=== PATIENT | female | born 2000 | race Caucasian/White ===

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

== ENCOUNTER → 2019-10-19 | Outpatient (CLI) | payer MEDICAID, SELFPAY ==
[2018-04-17 09:34] VITALS: BMI 30.7
[2019-10-22 05:07] LABS: Chlamydia By Nucleic Acid AMP Negative (Negative)
[2019-10-22 15:50] LABS: Gonococcus By Nucleic Acid AMP Negative (Negative)
== END | disposition home or self-care (01) ==
LOC: LABSPEC 16:26
PROVIDERS: PCP Pediatrics; Visit Provider Obstetrics & Gynecology
DX: Z11.3 Encounter for screening for infections with a predominantly sexual mode of transmission (principal)
CPT/HCPCS: 87491; 87591

== ENCOUNTER → 2019-11-22 | Outpatient (CLI) | payer MEDICAID, SELFPAY ==
[2018-04-17 09:34] VITALS: BMI 30.7
[2019-11-22 12:12] LABS: hCG Titer Quant., Serum < 1 mIU/mL (1-3)
== END | disposition home or self-care (01) ==
LOC: WOBLAB 10:35
PROVIDERS: PCP Pediatrics; Visit Provider Obstetrics & Gynecology
DX: N91.0 Primary amenorrhea (principal)
CPT/HCPCS: 36415; 84702

== ENCOUNTER → 2019-11-26 | Outpatient (CLI) | payer MEDICAID, SELFPAY ==
[2018-04-17 09:34] VITALS: BMI 30.7
[2019-11-26 08:40] LABS: Glucose 75GTT - Fasting 102 mg/dL (70-99)
[2019-11-26 09:14] LABS: Insulin 75GTT - Fasting 29.3 mU/L (2.6-37.6)
[2019-11-26 09:16] LABS: T3 Total - Triiodothyronine 1.39 ng/mL (0.6-1.81)
[2019-11-26 09:54] LABS: Glucose 75GTT - 60 minutes 148 mg/dL (100-160)
[2019-11-26 09:54] LABS: Glucose 75GTT - 30 minutes 163 mg/dL (100-160)
[2019-11-26 10:02] LABS: Insulin 75GTT - 30 MIN 237.9 mU/L (Not Estab.)
[2019-11-26 10:26] LABS: Estradiol 42.7 pg/mL; Follicle Stimulating Hormone 5.9 mIU/mL; Luteinizing Hormone 13.8 mIU/mL; Prolactin 16.9 ng/mL; T4 Free Direct 0.91 ng/dL (0.76-1.46); Thyroid Stim Hormone (TSH) 3.04 uIU/mL (0.358-3.74)
[2019-11-26 10:55] LABS: Insulin 75GTT - 60 min 337.6 mU/L (Not Estab)
[2019-11-26 11:40] LABS: Glucose 75GTT - 120 minutes 91 mg/dL (70-140)
[2019-11-26 11:48] LABS: Insulin 75GTT - 120 min 114.2 mU/L (Not Estab.)
[2019-11-27 10:16] LABS: Sex Hormone-binding Globulin 20.7 nmol/L (24.6-122.0)
[2019-11-30 18:23] LABS: Thyroglobulin Antibody 4.5 IU/mL (0.0-0.9); Thyroid Peroxidase AB < 9 IU/mL (0-26)
== END | disposition home or self-care (01) ==
LOC: LAB 08:00
PROVIDERS: PCP Pediatrics; Referring Provider Obstetrics & Gynecology; Visit Provider Obstetrics & Gynecology
DX: E03.9 Hypothyroidism, unspecified (principal); N92.6 Irregular menstruation, unspecified; Z13.1 Encounter for screening for diabetes mellitus
CPT/HCPCS: 36415; 82533; 82627; 82670; 82951; 82952; 83001; 83002; 83525; 84146; 84270; 84403; 84439; 84443; 84480; 84481; 86376; 86800; 82626

== ENCOUNTER → 2020-01-25 13:59 | Outpatient (CLI) | payer MEDICAID, SELFPAY ==
[2018-04-17 09:34] VITALS: BMI 30.7
[2020-01-25 16:14] LABS: Free T3 3.1 pg/mL (2.18-3.98); T4 Free Direct 1.14 ng/dL (0.76-1.46); Thyroid Stim Hormone (TSH) 0.72 uIU/mL (0.358-3.74)
== END ==
PROVIDERS: PCP Pediatrics; Visit Provider Obstetrics & Gynecology
DX: E03.9 Hypothyroidism, unspecified (principal)
CPT/HCPCS: 36415; 84439; 84443; 84481

== ENCOUNTER 2020-03-10 18:03 | Emergency (ER) | payer MEDICAID, SELFPAY ==
[2018-04-17 09:34] VITALS: BMI 30.7
[2020-03-10 18:04] VITALS: BP 150/112; PULSE 100; RESP 16; TEMP 35.9; O2SAT 100; BMI 31.9
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
--- NOTE | 2020-03-10 18:48 | ED.VIS.GEN ---
History of Present Illness Chief Complaint: Lower Extremity Injury Narrative: 19-year-old female presenting with ankle pain. She states she tripped and twisted her right ankle. She states he is unable to bear weight on it. He has not noted any swelling or bruising. She denies other injury. - Past Medical History (1) Anxious depression Status: Chronic Past Medical History - Allergies and Home Meds Allergies/Adverse Reactions: Allergies No Known Allergies Allergy (Verified 03/10/20 18:06) Primary Care Physician: Caroline Mejia MD [Primary Care Provider] - Prior records reviewed: Yes Past Medical History: None Surgical History: noncontributory Lives: With Family Smoking Status: Never smoker Alcohol: None Drugs: None Review of Systems General: Denies: Chills, Fever, Sweats Eyes: Denies: Visual changes - bilaterally, Diplopia ENT: Denies: Rhinorrhea, Sore throat Cardiovascular: Denies: Chest pain, Palpitations Respiratory: Denies: Dyspnea, Cough, Dyspnea on exertion Gastrointestinal: Denies: Abdominal pain, Nausea, Vomiting, Diarrhea, Melena, Hematochezia Genitourinary: Denies: Dysuria, Hematuria, Frequency Musculoskeletal: Reports: Extremity Pain - Right ankle pain. Denies: Swelling Skin: Denies: Rash, Wounds Neurological: Denies: Headache, Weakness, Numbness Psych: Denies: Depression, Anxiety Physical Exam Vital Signs/Narrative: Vital Signs Temp Pulse Resp BP Pulse Ox 03/10/20 18:04 96.7 F L 100 16 150/112 H 100 General: Well nourished, Well developed, No Acute Distress Head: Normocephalic, Atraumatic Eyes: Perrl, EOMI ENT: Moist mucous membranes, No rhinorrhea Neck: Supple, Nontender Cardiovascular: Regular rate, Regular rhythm, No murmurs Respiratory: No distress, CTA bilaterally, Chest nontender Extremities: Tenderness - Tenderness to palpation over right lateral malleolus. There is no obvious swelling or deformity. Her right foot is neurovascularly intact with brisk cap refill to all 5. Negative for: Calf Tenderness Skin: Normal color, No rash Neurological: Alert, Oriented x3 Psychological: Normal affect, Normal Mood Diagnostic/Tx/Re-eval Clinical Impression(s) from Imaging Studies Ankle X-Ray 03/10/20 18:08 IMPRESSION: Lateral soft tissue injury without underlying fracture or dislocation. Electronically Signed: Katerin Cat MD at 18:24 EST , Service support , - Medical Decision Making 19-year-old female presenting with right ankle pain. She states he is unable to bear weight and has pain over the lateral malleolus. There is no obvious deformity. Patient had x-ray of the right ankle 3 views which is interpreted by myself as no acute bony abnormality and radiology does agree. Patient was placed in Ralph wrap and Aircast. She is provided crutches for home. She was given [place] in the ED however she was counseled she will need to alternate Tylenol ibuprofen at home. She is amenable this plan. She is discharged home in stable condition. Impression: 1. Right ankle sprain ED Disposition - Plan for ED Patient: Disposition: Home or Assisted Living Instructions: ED Sprain Ankle W X Ray Referrals: Caroline Mejia MD [Primary Care Provider] -
[2020-03-10] MEDS: HYDROcodone Bitartrate/Apap 5/325 Tablet PO (19:01)
== END 2020-03-10 19:26 | disposition home or self-care (01) ==
PROVIDERS: Emergency Provider Student in an Organized Health Care Education/Training Program; PCP Pediatrics
DX: S93.401A Sprain of unspecified ligament of right ankle, initial encounter (principal); X50.1XXA Overexertion from prolonged static or awkward postures, initial encounter; Y93.89 Activity, other specified; Y92.89 Other specified places as the place of occurrence of the external cause; Y99.8 Other external cause status
CPT/HCPCS: 73610; 99284

== ENCOUNTER → 2020-04-12 14:30 | Outpatient (CLI) | payer MEDICAID, SELFPAY ==
[2020-04-12 15:50] LABS: Progesterone Level 0.68 ng/mL (See Comment)
== END ==
PROVIDERS: PCP Pediatrics; Visit Provider Obstetrics & Gynecology
DX: N92.6 Irregular menstruation, unspecified (principal); N97.0 Female infertility associated with anovulation
CPT/HCPCS: 36415; 84144

== ENCOUNTER → 2020-06-30 12:38 | Outpatient (CLI) | payer MEDICAID, SELFPAY | PROVIDERS: PCP Family Medicine; Referring Provider Obstetrics & Gynecology; Visit Provider Obstetrics & Gynecology | DX: N92.6 Irregular menstruation, unspecified (principal); N97.0 Female infertility associated with anovulation | CPT/HCPCS: 36415; 84144 ==

== ENCOUNTER → 2020-08-01 14:21 | Outpatient (CLI) | payer MEDICAID, SELFPAY ==
[2020-08-01 16:00] LABS: Progesterone Level 11.23 ng/mL (See Comment)
== END ==
PROVIDERS: PCP Family Medicine; Visit Provider Obstetrics & Gynecology
DX: N97.0 Female infertility associated with anovulation (principal)
CPT/HCPCS: 36415; 84144

== ENCOUNTER → 2020-09-04 11:13 | Outpatient (CLI) | payer MEDICAID, SELFPAY ==
[2020-08-28 10:24] VITALS: BMI 31.9
[2020-09-04 12:06] LABS: Progesterone Level 9.59 ng/mL (See Comment)
== END ==
PROVIDERS: PCP Family Medicine; Visit Provider Obstetrics & Gynecology
DX: N97.0 Female infertility associated with anovulation (principal)
CPT/HCPCS: 36415; 84144

== ENCOUNTER → 2020-11-23 14:26 | Outpatient (CLI) | payer MEDICAID, SELFPAY ==
[2020-11-23 16:18] LABS: Progesterone Level 15.68 ng/mL (See Comment)
[2020-11-24 11:58] LABS: Free T3 2.7 pg/mL (2.18-3.98); T4 Free Direct 0.87 ng/dL (0.76-1.46); Thyroid Stim Hormone (TSH) 2.68 uIU/mL (0.358-3.74)
== END ==
PROVIDERS: PCP Family Medicine; Visit Provider Obstetrics & Gynecology
DX: E03.9 Hypothyroidism, unspecified (principal); Z51.81 Encounter for therapeutic drug level monitoring
CPT/HCPCS: 36415; 84144; 84439; 84443; 84481

== ENCOUNTER → 2020-11-24 | Outpatient (CLI) | payer MEDICAID, SELFPAY ==
[2020-11-27 22:07] LABS: Chlamydia By Nucleic Acid AMP Negative (Negative)
[2020-11-27 22:27] LABS: Gonococcus By Nucleic Acid AMP Negative (Negative)
== END | disposition home or self-care (01) ==
LOC: LABSPEC 10:49
PROVIDERS: PCP Family Medicine; Visit Provider Obstetrics & Gynecology
DX: Z11.3 Encounter for screening for infections with a predominantly sexual mode of transmission (principal)
CPT/HCPCS: 87491; 87591

== ENCOUNTER → 2021-01-10 14:53 | Outpatient (CLI) | payer MEDICAID, SELFPAY ==
[2021-01-10 15:35] LABS: Progesterone Level 0.47 ng/mL (See Comment)
== END ==
PROVIDERS: PCP Family Medicine; Visit Provider Obstetrics & Gynecology
DX: N97.0 Female infertility associated with anovulation (principal)
CPT/HCPCS: 36415; 84144

== ENCOUNTER → 2021-01-25 | Outpatient (CLI) | payer MEDICAID, SELFPAY | END | disposition home or self-care (01) | LOC: LABSPEC 15:04 | PROVIDERS: PCP Family Medicine; Referring Provider Physician Assistant; Visit Provider Physician Assistant | DX: J02.9 Acute pharyngitis, unspecified (principal) | CPT/HCPCS: 87081 ==

== ENCOUNTER → 2021-02-08 14:04 | Outpatient (CLI) | payer MEDICAID, SELFPAY ==
[2021-02-08 15:56] LABS: Progesterone Level 10.91 ng/mL (See Comment)
== END ==
PROVIDERS: PCP Family Medicine; Visit Provider Obstetrics & Gynecology
DX: Z31.83 Encounter for assisted reproductive fertility procedure cycle (principal)
CPT/HCPCS: 36415; 84144

== ENCOUNTER → 2021-12-25 | Outpatient (CLI) | payer MEDICAID, SELFPAY | END | disposition home or self-care (01) | PROVIDERS: PCP Family Medicine; Referring Provider Physician Assistant Surgical; Visit Provider Physician Assistant Surgical | DX: J02.9 Acute pharyngitis, unspecified (principal) | CPT/HCPCS: 87070 ==

== ENCOUNTER → 2022-01-02 | Outpatient (CLI) | payer MEDICAID, SELFPAY | END | disposition home or self-care (01) | LOC: LABSPEC 15:26 | PROVIDERS: PCP Family Medicine; Visit Provider Otolaryngology Otolaryngology/Facial Plastic Surgery | DX: J02.9 Acute pharyngitis, unspecified (principal) | CPT/HCPCS: 87070 ==

== ENCOUNTER 2022-08-03 12:04 | Emergency (ER) | payer MEDICAID, SELFPAY ==
[2022-08-03 12:05] VITALS: BP 134/76; PULSE 70; RESP 16; TEMP 37; O2SAT 100; BMI 31.6
[2022-08-03] MEDS: Cephalexin 250 MG Capsule 500 MG PO (12:30)
[2022-08-03 12:33] VITALS: RESP 16
--- NOTE | 2022-08-03 12:38 | EX.ED.UPPERE ---
HPI History of Present Illness Chief Complaint: Upper Extremity Injury Narrative Narrative: 21-year-old female presenting with left middle finger swelling distally. Surround the nailbed mostly medially. Denies any trauma. She does admit to biting her fingernails. Its been swelling over a couple of days. She has no trouble bending her fingers. No fevers or chills. No drainage. PFSH PFSH Medical History Acute bronchitis Acute ethmoidal sinusitis, unspecified Acute maxillary sinusitis, unspecified Encounter for screening for COVID-19 Migraines URI (upper respiratory infection) Home Medications letrozole 2.5 mg tablet 2.5 mg PO 08/28/20 [History Last Taken Unknown] levothyroxine 50 mcg tablet 50 mcg PO 08/28/20 [History Last Taken Unknown] metformin 500 mg tablet,extended release 24 hr 1,000 mg PO 08/28/20 [History Last Taken Unknown] sertraline 50 mg tablet 50 mg PO 08/28/20 [History Last Taken Unknown] cephalexin 500 mg capsule 500 mg PO Q6 #40 CAPSULES 08/03/22 [Rx Last Taken Unknown] Allergy/AdvReac Type Severity Reaction Status Date / Time No Known Allergies Allergy Verified 08/03/22 12:08 Social History Smoking Status: Never smoker alcohol intake: never ROS ROS ED Constitutional Constitutional ED: Denies chills, fever(s) or sweats Eyes Eyes: Denies blurry vision or change in vision ENT ENT ED: Denies ear pain or sore throat Cardiovascular Cardiovascular: Denies chest pain, palpitations or racing heartbeat Respiratory/Chest Respiratory/Chest: Denies cough, dyspnea or sputum Gastrointestinal Gastrointestinal: Denies abdominal pain, constipation, diarrhea, nausea or vomiting Genitourinary Genitourinary ED: Denies dysuria, hematuria or urinary frequency Musculoskeletal Musculoskeletal: Denies arthralgias, myalgias or neck pain Integumentary Reports other Details: Paronychia left middle finger ; Denies abscess or Abrasions Neurologic Neurologic: Denies headache(s), paresthesias or weakness Psychiatric Psychiatric: Denies anxiety, depression, suicidal ideation or suicidal thoughts Endocrine Endocrinology: Denies polydipsia or polyuria EXAM Physical Exam Const Vital Signs: 08/03/22 12:05 08/03/22 12:33 Temperature 98.6 F Temperature Source Temporal Pulse Rate 70 Respiratory Rate 16 16 Blood Pressure 134/76 H Blood Pressure Mean 95 Pulse Ox 100 Oxygen Delivery Method Room Air Positive well nourished HEENT Reports moist mucous membranes normocephalic and atraumatic Eyes PERRL Resp normal respiratory effort Cardio regular rate and regular rhythm Neuro oriented x3 Sensorium / Orientation: alert Skin Skin Narrative: Appears to be a paronychia of the medial aspect of the nailbed of the middle finger on the left hand. No drainage. No fluctuance. No evidence of felon. MDM MDM MDM Narrative Medical decision making narrative: Patient with paronychia to left middle finger. I counseled her soak this several times a day in hot soapy water. I will start her on Keflex with first dose in the ED. She is given follow-up as an outpatient. Return precautions were discussed. Impression: 1. Paronychia Discharge Plan Triage Chief Complaint: Upper Extremity Injury ED Provider: Louie Caldwell Dx/Rx/DC Orders Instructions: ED Paronychia of the Finger or Toe Prescriptions: New cephalexin 500 mg capsule 500 mg PO Q6 Qty: 40 0RF No Action sertraline 50 mg tablet 50 mg PO levothyroxine 50 mcg tablet 50 mcg PO metformin 500 mg tablet extended release 24 hr 1,000 mg PO letrozole 2.5 mg tablet 2.5 mg PO Label Comments: TAKE 3 TABLETS (all at the same time) BY MOUTH DAILY on cycle days 3 (THREE) through 7 (SEVEN). Primary Care Provider: Alessio Ron Referrals: Lico Soto MD [Med Staff - Active Staff] - 3-5 Days Alessio Ron MD [Primary Care Provider] - Disposition Disposition: Home, Self Care
== END 2022-08-03 12:40 | disposition home or self-care (01) ==
LOC: ED 12:36
PROVIDERS: Emergency Provider Student in an Organized Health Care Education/Training Program; PCP Family Medicine; Visit Provider Student in an Organized Health Care Education/Training Program
DX: L03.012 Cellulitis of left finger (principal)
CPT/HCPCS: 99283